=== PATIENT | female | born 1975 | race African-American/Black ===

== ENCOUNTER → 2021-04-26 17:30 | Outpatient (CLI) | payer BC ==
[2021-03-22 13:28] VITALS: BMI 35.2
[~2021-04-26 17:30] MED LIST: ADDERALL 30 MG30 MG PO; BC PILL PO; CYCLOBENZAPRINE10 MG PO; ELAVIL75 MG PO; FUROSEMIDE40 MG PO; HYDROCODON-ACE1 EA10 PO; MOBIC7.5 MG PO; NORVASC10 MG PO; PROAIR HFA8.5 G1 INH; SLOW RELEASE I160 MG PO
[2021-04-26 18:08] LABS: BASOPHILS 0.7 % (0-2); EOSINOPHILS 2.5 % (0-7); HEMATOCRIT 30.7 % (36.0-48.0); HEMOGLOBIN 9.4 g/dL (12-16); LYMPHOCYTES 35.1 % (15-50); MCHC 30.5 g/dL (31.0-37.0); MEAN PLATELET VOLUME 8.6 fL (7.4-10.4); MONOCYTES 6.1 % (2-11); NEUTROPHILS 55.6 % (40-80); PLATELET COUNT 317 10x3/uL (130-400); RBC 4.27 10x6/uL (4.00-5.40); RDW 25.4 % (11.5-14.5); WBC 4.4 10x3/uL (4.8-10.8)
[2021-04-26 19:15] LABS: ERYTHROCYTE SEDIMENTATION RATE 9 mm/hr (0-20)
== END | disposition home or self-care (01) ==
LOC: D.LABREF 17:30
PROVIDERS: ATTEND Clinical Nurse Specialist Family Health
DX: M25.562 Pain in left knee (principal)